=== PATIENT | male | born 1995 | race Caucasian/White ===

== ENCOUNTER 2016-05-22 13:22 | Day surgery (SDC) | payer OTHER ==
[~2016-05-22] VITALS: Ht 177.8 cm; Wt 66.2 kg
[2016-05-22 13:43] VITALS: Ht 177.8 cm; Wt 66.2 kg
[2016-05-22] MEDS ORDERED: OMEPRAZOLE (14:04)
[2016-05-22] MEDS ORDERED: ALBUTEROL (14:04)
[2016-05-22] MEDS ORDERED: ZOFRAN (14:04)
[2016-05-22 14:06] VITALS: BP 124/63; PULSE 71; RESP 15
[2016-05-22] MEDS ORDERED: PROPOFOL 40 ML ONE (14:31)
[2016-05-22 15:00] VITALS: BP 126/69; PULSE 64; RESP 18
--- NOTE | 2016-05-22 15:02 | GILP ---
DATE OF PROCEDURE: 05/22/2016 NAME OF PROCEDURE: Esophagogastroduodenoscopy and biopsy. SURGEON: Claudia Dunlap MD PREOPERATIVE DIAGNOSIS: Abdominal pain. POSTOPERATIVE DIAGNOSES: 1. Gastritis with erosions. 2. Gastric mucosal biopsies were taken for Helicobacter pylori test. INDICATION FOR THE PROCEDURE: Mr. David Monte is a 20-year-old male patient who had upper abdomina l pain, not responding to therapy. The patient was scheduled for endoscopic examination for further evaluation. The procedure and possible complications were well explained to the patient, he understood and conse nted to the procedure. DESCRIPTION OF PROCEDURE: Under the influence of anesthesia, the gastroscope was carefully introduc ed into the esophagus. Under direct vision, it was advanced to the stomach and through the pylorus into the duodenal bulb and descending duodenum. FINDINGS: ESOPHAGUS: The mucosa was normal. STOMACH: The patient had gastritis with erosions. Gastric mucosal biopsies were taken for H. pylori test. DUODENUM: Normal. The patient tolerated the procedure very well and there was no complication from the procedure. At the end of the procedure, he was awake with stable vital signs and he was discharged home to the car e of his family. IMPRESSION: 1. Gastritis. 2. Gastric mucosal biopsies were taken for Helicobacter pylori test. PLAN: 1. Continue omeprazole. 2. Bentyl 10 mg p.o. t.i.d. p.r.n. for pain. 3. Await H. pylori test report. Dictated By: CLAUDIA BETTENCOURT/SOLANGE Conf#: [id number] DID#: [id number]
[2016-05-22 15:35] VITALS: BP 108/67; PULSE 60; RESP 17
--- NOTE | 2016-05-23 14:23 | CONS ---
DATE OF ADMISSION: 05/22/2016 DATE OF CONSULTATION: I thank you very much for this kind referral. HISTORY OF PRESENT ILLNESS: Mr. David Monte is a 20-year-old male patient who has been referred to me for further evaluation of upper abdominal pain associated with nausea. The patient has been ira ing omeprazole and Zofran without relief of the symptoms. His appetite has been poor and he states that he has been losing weight. There is no past history of peptic ulcer disease. He is not taking any nonsteroidal anti-inflammatory agents. There is no history of gallstones. He does not have an y fever, chills or jaundice. There is no history of liver disease. Patient had blood tests and abd ominal CT scan done and they were normal. The patient denies any change in the bowel habit or recta l bleeding. There is no past history of inflammatory bowel disease. He is not a hypertensive or di abetic. He does not have any heart disease. He has history of bronchial asthma. There is no histo ry of kidney disease. SOCIAL HISTORY: He does not smoke cigarettes, but he smokes marijuana. There is no history of alco hol abuse. FAMILY HISTORY: Negative for gastrointestinal tract neoplasm. ALLERGIES: HE STATES HE IS ALLERGIC TO PENICILLIN. MEDICATIONS: 1. Omeprazole. 2. Zofran. PHYSICAL EXAMINATION: VITAL SIGNS: He is 5 feet 10 inches tall and he weighs 143 pounds. HEART: Examination of the heart reveals normal first and second heart sounds. LUNGS: Clear. ABDOMEN: Soft without any distention. Liver and spleen are not palpable. There are no masses. Th ere is no focal tenderness. Normal bowel sounds are heard. CENTRAL NERVOUS SYSTEM: Does not reveal any focal neurological deficit. IMPRESSION: 1. Upper abdominal pain associated with nausea. 2. The patient has been taking omeprazole and Zofran without any relief. 3. The patient had blood tests and abdominal CT scan done and they were normal. 4. He also complains of weight loss. 5. History of bronchial asthma. 6. The patient smokes marijuana. 7. HISTORY OF ALLERGY TO PENICILLIN. PLAN: 1. Continue omeprazole and Zofran. 2. Endoscopic examination for further evaluation. 3. Because of the marijuana use, he will be resistant to narcotics and he needs monitored anesthesi a care for the procedure. The procedure and possible complications are well explained to the patient and his mother. They und erstand and consent to the procedure. I thank you once again. With warmest personal regards, Dictated By: CLAUDIA BETTENCOURT/SOLANGE Conf#: [id number] DID#: [id number] CC: CLAUDIA BENNETT MD;*EndCC*
== END 2016-05-22 15:48 | disposition home or self-care (01) ==
LOC: GIL 13:22
PROVIDERS: ATTEND Internal Medicine Gastroenterology
DX: K29.60 Other gastritis without bleeding (principal); Z88.0 Allergy status to penicillin
CPT/HCPCS: 43239; 87081; Z7610